=== PATIENT | female | born 1960 | race Caucasian/White ===

== ENCOUNTER 2020-08-11 04:20 | Emergency (ER) | payer OTHER ==
[~2020-08-11] VITALS: Ht 172.7 cm; Wt 122.7 kg
[2020-08-11] MEDS ORDERED: IV RINGERS SOLUTION,LACTATED 1,000 ML IV SCH (04:38)
--- NOTE | 2020-08-11 04:38 | PHYS DOC ---
Past History Past Medical History: Constipation (BIB MACKENZIE MD) General Adult HPI: HPI: ".. I ve had this pain. .. here in my Rt. flank .. it been coming on the past couple days.. but it got really severe.. this morning.. About 4 weeks ago .. I had pneumonia.. and COVID.. I gely got over it.. but now this pain.. in my side..." Patient is a 59 year old female who presents with above hx and onset of severe Rt. flank pain. Patient denies any trauma. Patient denies any history of past kidney stones. No history of immunosuppression. No recent travel outside the [place] area. No specific ill contacts. Pt. Follows with Dr. Zapien. (BIB MACKENZIE MD) Review of Systems: Review of Systems: Constitutional: Denies fever or chills Eyes: Denies change in visual acuity HENT: Denies nasal congestion or sore throat Respiratory: Denies cough or shortness of breath Cardiovascular: Denies chest pain or edema GI: Complains of right flank abdominal pain, nausea. Denies, vomiting, bloody stools or diarrhea some history of constipation : Denies dysuria Musculoskeletal: Complains of right flank back pain Integument: Denies rash Neurologic: Denies headache, focal weakness or sensory changes Endocrine: Denies polyuria or polydipsia Lymphatic: Denies swollen glands Psychiatric: Denies depression or anxiety (BIB MACKENZIE MD) Family History: Family History: Noncontributory to presentation (BIB MACKENZIE MD) Current Medications: Current Meds: See nursing for home meds (BIB MACKENZIE MD) Allergies: Allergies: As per nursing (BIB MACKENZIE MD) Physical Exam: PE: Constitutional: in acute distress, non-toxic appearance. [] HENT: Normocephalic, atraumatic, bilateral external ears normal, oropharynx moist, no oral exudates, nose normal. [] Eyes: PERRLA, EOMI, conjunctiva normal, no discharge. [] Neck: Normal range of motion, no tenderness, supple, no stridor. [] Cardiovascular:Heart rate regular rhythm, no murmur [] Lungs & Thorax: Bilateral breath sounds equal apex auscultation [] Abdomen: Bowel sounds decreased, soft, right flank and lower quadrant tenderness, no masses, no pulsatile masses. [Distended Skin: Warm, diaphoretic, no erythema, no rash. [] Back: No tenderness, right flank CVA tenderness. [] Extremities: No tenderness, no cyanosis, no clubbing, ROM intact, no edema. No psoas sign. No cording Neurologic: Alert and oriented X 3, normal motor function, normal sensory function, no focal deficits noted. [] Psychologic: Affect anxious, judgement normal, mood normal. [] (BIB MACKENZIE MD) Current Patient Data: Labs: Laboratory Tests Test 08/11/20 04:25 08/11/20 04:50 Urine Collection Type Void Urine Color Yellow Urine Clarity Clear Urine pH 5.0 Urine Specific [place] >=1.030 Urine Protein Trace (NEG-TRACE) Urine Glucose (UA) >=1000 mg/dL (NEG) Urine Ketones (Stick) Neg mg/dL (NEG) Urine Blood Neg (NEG) Urine Nitrite Neg (NEG) Urine Bilirubin Neg (NEG) Urine Urobilinogen Dipstick 0.2 mg/dL (0.2 mg/dL) Urine Leukocyte Esterase Neg (NEG) Urine RBC 0 /HPF (0-2) Urine WBC 20-40 /HPF (0-4) Urine Squamous Epithelial Cells Mod /LPF Urine Bacteria Few /HPF (0-FEW) Urine Opiates Screen Neg (NEG) Urine Methadone Screen Neg (NEG) Urine Barbiturates Neg (NEG) Urine Phencyclidine Screen Neg (NEG) Urine Amphetamine/Methamphetamine Neg (NEG) Urine Benzodiazepines Screen Neg (NEG) Urine Cocaine Screen Neg (NEG) Urine Cannabinoids Screen Pos (NEG) Urine Ethyl Alcohol Neg (NEG) White Blood Count 10.9 x10^3/uL (4.0-11.0) Red Blood Count 4.43 x10^6/uL (3.50-5.40) Hemoglobin 13.0 g/dL (12.0-15.5) Hematocrit 40.9 % (36.0-47.0) Mean Corpuscular Volume 92 fL (79-100) Mean Corpuscular Hemoglobin 29 pg (25-35) Mean Corpuscular Hemoglobin Concent 32 g/dL (31-37) Red Cell Distribution Width 16.0 % (11.5-14.5) Platelet Count 244 x10^3/uL (140-400) Segmented Neutrophils % 41 % (35-66) Lymphocytes % 52 % (24-48) Monocytes % 4 % (0-10) Eosinophils % 3 % (0-5) Platelet Estimate Adequate (ADEQUATE) Prothrombin Time 9.6 SEC (9.4-11.4) Prothromb Time International Ratio 0.9 (0.9-1.1) Activated Partial Thromboplast Time 24 SEC (23-33) Sodium Level 139 mmol/L (136-145) Potassium Level 3.8 mmol/L (3.5-5.1) Chloride Level 103 mmol/L (98-107) Carbon Dioxide Level 25 mmol/L (21-32) Anion Gap 11 (6-14) Blood Urea Nitrogen 21 mg/dL (7-20) Creatinine 1.0 mg/dL (0.6-1.0) Estimated GFR (Cockcroft-Gault) 56.9 Glucose Level 130 mg/dL (70-99) Calcium Level 8.7 mg/dL (8.5-10.1) Total Bilirubin 0.3 mg/dL (0.2-1.0) Direct Bilirubin 0.1 mg/dL (0.0-0.2) Aspartate Amino Transf (AST/SGOT) 12 U/L (15-37) Alanine Aminotransferase (ALT/SGPT) 31 U/L (14-59) Alkaline Phosphatase 54 U/L (46-116) Creatine Kinase 52 U/L (26-192) Troponin I Quantitative < 0.017 ng/mL (0-0.055) Total Protein 7.9 g/dL (6.4-8.2) Albumin 3.8 g/dL (3.4-5.0) Lipase 115 U/L (73-393) Vital Signs: Vital Signs Date Time Temp Pulse Resp B/P (MAP) Pulse Ox O2 Delivery O2 Flow Rate FiO2 08/11/20 04:25 98.5 86 24 158/96 (116) 97 Room Air (RADHA MCKEE DO) EKG: EKG: My interpretation EKG shows a sinus rhythm at 73 bpm. Left carcamo axis. Nonspecific contour changes. No findings of acute STEMI of contralateral changes. There are some findings anterior septal changes. [] (BIB MACKENZIE MD) Radiology/Procedures: Radiology/Procedures: [] (BIB MACKENZIE MD) Radiology/Procedures: PROCEDURE: CT ABDOMEN PELVIS WO CONTRAST Study: CT abdomen/pelvis without intravenous contrast Indication: Severe right flank pain. Comparison: No prior CT. Technique: Helical CT imaging performed of the abdomen and pelvis without the use of intravenous contrast. Sagittal and coronal reformats were obtained. One or more of the following individualized dose reduction techniques were utilized for this examination: 1. Automated exposure control 2. Adjustment of the mA and/or kV according to patient size 3. Use of iterative reconstruction technique. Findings: Inherently limited evaluation without intravenous contrast. Chest: No acute abnormality. Liver: Hepatic steatosis. Gallbladder/Biliary Tree: Within normal limits. Pancreas: Partial fatty atrophy. Spleen: Normal in size. Adrenal Glands: Normal. Kidneys/Ureters/Bladder: Simple left renal cyst measuring up to 3 cm. Probable smaller cysts at the left kidney lower pole. No intrarenal stone. No hydroureteronephrosis. Mostly decompressed urinary bladder. Reproductive Organs: Unremarkable. Colon: Mild/moderate constipation. The cecum extends upward into the right lower quadrant. No localized clonic wall thickening or pericolonic inflammation. Appendix: Normal. Small Bowel: No pathologic dilatation with transitioning to collapse to suggest obstruction. Stomach: Unremarkable. Vasculature: Mild calcific atherosclerosis. Nonaneurysmal aorta. Lymph Nodes: No suspicious lymph nodes based on size. Borderline prominent nuvia hepatis lymph node measuring 1 cm short axis but most likely reactive given hepatic steatosis. Peritoneum and Body Wall: Mild haziness of the mesentery at the left upper quadrant but without intermixed lymphadenopathy to suggest an aggressive process. No free fluid or pneumoperitoneum. No complex hernia. Bones: Multifocal degenerative/chronic findings. Osseous proliferation at scattered locations which can be seen with diffuse idiopathic skeletal hyperostosis. No acute or aggressive osseous abnormality. Miscellaneous: None. Impression: 1. No nephrolithiasis or collecting system obstruction is identified in the setting of reported right flank pain. Collectively no acute abnormality is seen throughout the abdomen or pelvis. 2. Mild/moderate constipation. 3. Hepatic steatosis. 4. Additional chronic observations detailed in the body the report. Electronically signed by: SAMARA OSEI MD (08/11/2020 5:58 AM) [id number] (RADHA MCKEE DO) Heart Score: Risk Factors: Risk Factors: DM, Current or recent (<one month) smoker, HTN, HLP, family history of CAD, obesity. Risk Scores: Score 0 - 3: 2.5% MACE over next 6 weeks - Discharge Home Score 4 - 6: 20.3% MACE over next 6 weeks - Admit for Clinical Observation Score 7 - 10: 72.7% MACE over next 6 weeks - Early Invasive Strategies (BIB MACKENZIE MD) Course & Med Decision Making: Course & Med Decision Making Pertinent Labs and Imaging studies reviewed. (See chart for details) Endorsed to Dr. Mckee at shift change. CT pending. [] (BIB MACKENZIE MD) Course & Med Decision Making Comprehensive signout received from off going physician. I thoroughly reviewed patient's chart and ER work-up thus far. By the time I evaluated patient, patient's comprehensive ER work-up had been completed. Patient hemodynamically stable, no obvious surgical and/or emergent findings apparent from the work-up Patient seen and examined by myself, I repeated certain aspects of history and physical exam. Again, nothing urgent and/or concerning at this time requiring further ER work-up and/or hospital admission Discussed most likely diagnoses of constipation versus musculoskeletal right flank/lower back pain. Based on comprehensive work-up, low risk for nephrolithiasis, atypical ACS, surgical abdomen etc. I did disclose this might be an acute presentation more concerning pathology and thus, close outpatient follow-up advised. She sees Dr. Fontaine, local primary care physician in area and will be able to be seen within upcoming 5 days. I feel this is appropriate Strict return precautions were discussed with good understanding by patient, all questions and concerns addressed prior to ER departure home with supportive care instructions advised for patient's constipation and lower back pain (RADHA MCKEE DO) Amara Disclaimer: Amara Disclaimer: This electronic medical record was generated, in whole or in part, using a voice recognition dictation system. (BIB MACKENZIE MD) Departure Departure: Impression: Primary Impression: Flank pain Additional Impression: Constipation Disposition: 01 DC HOME SELF CARE/HOMELESS Patient Instructions: Back Exercises, Constipation, Adult, Flank Pain Additional Instructions: You have been evaluated in the Emergency Department today for lower back/flank pain. Your evaluation was not suggestive of any emergent condition requiring medical intervention at this time. However, some problems make take more time to appear. Therefore, it is important for you to watch for any new symptoms or worsening of your current condition. As discussed, please call your primary care physician immediately after ER departure to schedule outpatient follow-up by the end of the week for repeat evaluation Also, please take MiraLAX daily and increase p.o. water intake to improve your constipation. Utilize heating pad to right flank area and topical Voltaren gel as needed Return to the Emergency Department if you experience worsening pain, persistent fevers greater than 100.4, recurrent vomiting, blood in vomit, blood in stool, dark tarry stool, chest pain, difficulty breathing, or any other concerning symptoms. BIB MACKENZIE MD Aug 11, 2020 04:38 RADHA MCKEE DO Aug 11, 2020 06:22
[2020-08-11] MEDS ORDERED: MORPHINE SULFATE 10 MG/ML SYRINGE. ONE (04:41)
[2020-08-11] MEDS ORDERED: ONDANSETRON PF 4 MG/2 ML VIAL. ONE (04:41)
[2020-08-11] MEDS ORDERED: MORPHINE SULFATE 10 MG/ML SYRINGE. SQ ONE (04:45)
[2020-08-11] MEDS ORDERED: ONDANSETRON PF 4 MG/2 ML VIAL. IVP ONE ×2 (04:45)
[2020-08-11 05:17] LABS: HEMATOCRIT 40.9 % (36.0-47.0); MEAN CORPUSCULAR HEMOGLOBIN 29 pg (25-35); MEAN CORPUSCULAR HGB CONC 32 g/dL (31-37); MEAN CORPUSCULAR VOLUME 92 fL (79-100); RED BLOOD COUNT 4.43 x10^6/uL (3.50-5.40); WHITE BLOOD COUNT 10.9 x10^3/uL (4.0-11.0)
[2020-08-11 05:18] LABS: PLATELET COUNT 244 x10^3/uL (140-400)
[2020-08-11 05:22] LABS: BARBITURATES NEG (NEG); BENZODIAZEPINES NEG (NEG); CANNABINOIDS POS (NEG); COCAINE NEG (NEG); METHADONE NEG (NEG); OPIATES NEG (NEG); PHENCYCLIDINE NEG (NEG)
[2020-08-11 05:23] LABS: AMPHETAMINE/METHAMPHETAMINE NEG (NEG)
[2020-08-11 05:26] LABS: CALCIUM 8.7 mg/dL (8.5-10.1); GFR 56.9; POTASSIUM 3.8 mmol/L (3.5-5.1)
[2020-08-11 05:27] LABS: BACTERIA,URINE FEW /HPF (0-FEW); BILIRUBIN,URINE NEG (NEG); CLARITY,URINE CLEAR; COLOR,URINE YELLOW; GLUCOSE,URINE >=1000 mg/dL (NEG); NITRITE,URINE NEG (NEG); RBC,URINE 0 /HPF (0-2); SQUAMOUS EPITHELIAL CELL,UR MOD /LPF; UROBILINOGEN,URINE 0.2 mg/dL (0.2 mg/dL); WBC,URINE 20-40 /HPF (0-4)
[2020-08-11] MEDS ORDERED: FAMOTIDINE 20 MG/2 ML VIAL IVP ONE (05:30)
[2020-08-11 05:32] LABS: ALBUMIN 3.8 g/dL (3.4-5.0); DIRECT BILIRUBIN 0.1 mg/dL (0.0-0.2); TOTAL BILIRUBIN 0.3 mg/dL (0.2-1.0); TOTAL PROTEIN 7.9 g/dL (6.4-8.2)
[2020-08-11 05:39] LABS: % EOS 3 % (0-5); % LYMPHS 52 % (24-48); % MONOS 4 % (0-10); % SEGS 41 % (35-66); PLT ESTIMATE ADEQUATE (ADEQUATE)
--- NOTE | 2020-08-11 05:47 | EKG ---
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
--- NOTE | 2020-08-11 06:01 | RAD ---
Study: CT abdomen/pelvis without intravenous contrast Indication: Severe right flank pain. Comparison: No prior CT. Technique: Helical CT imaging performed of the abdomen and pelvis without the use of intravenous contrast. Sagittal and coronal reformats were obtained. One or more of the following individualized dose reduction techniques were utilized for this examination: 1. Automated exposure control 2. Adjustment of the mA and/or kV according to patient size 3. Use of iterative reconstruction technique. Findings: Inherently limited evaluation without intravenous contrast. Chest: No acute abnormality. Liver: Hepatic steatosis. Gallbladder/Biliary Tree: Within normal limits. Pancreas: Partial fatty atrophy. Spleen: Normal in size. Adrenal Glands: Normal. Kidneys/Ureters/Bladder: Simple left renal cyst measuring up to 3 cm. Probable smaller cysts at the left kidney lower pole. No intrarenal stone. No hydroureteronephrosis. Mostly decompressed urinary bladder. Reproductive Organs: Unremarkable. Colon: Mild/moderate constipation. The cecum extends upward into the right lower quadrant. No localized clonic wall thickening or pericolonic inflammation. Appendix: Normal. Small Bowel: No pathologic dilatation with transitioning to collapse to suggest obstruction. Stomach: Unremarkable. Vasculature: Mild calcific atherosclerosis. Nonaneurysmal aorta. Lymph Nodes: No suspicious lymph nodes based on size. Borderline prominent nuvia hepatis lymph node measuring 1 cm short axis but most likely reactive given hepatic steatosis. Peritoneum and Body Wall: Mild haziness of the mesentery at the left upper quadrant but without intermixed lymphadenopathy to suggest an aggressive process. No free fluid or pneumoperitoneum. No complex hernia. Bones: Multifocal degenerative/chronic findings. Osseous proliferation at scattered locations which can be seen with diffuse idiopathic skeletal hyperostosis. No acute or aggressive osseous abnormality. Miscellaneous: None. Impression: 1. No nephrolithiasis or collecting system obstruction is identified in the setting of reported right flank pain. Collectively no acute abnormality is seen throughout the abdomen or pelvis. 2. Mild/moderate constipation. 3. Hepatic steatosis. 4. Additional chronic observations detailed in the body the report. Electronically signed by: SAMARA OSEI MD (08/11/2020 5:58 AM) [id number]
--- NOTE | 2020-08-11 06:02 | RAD ---
Study: CR ACUTE ABDOMEN SERIES Indication: Lower abdominal/right flank pain. Comparison: Same day CT abdomen/pelvis. Findings: No suspicious calcification seen at the right upper quadrant or along the expected course of the right ureter. Pelvic phleboliths. Mild/moderate constipation. The bowel gas pattern is nonobstructive. Within normal limits cardiomediastinal silhouette and geoff. Mild basilar volume loss. No confluent infiltrate, layering effusion or pneumothorax. Impression: 1. No acute radiographic abnormality of the chest or abdomen. 2. Mild/moderate constipation. Electronically signed by: SAMARA OSEI MD (08/11/2020 5:59 AM) [id number]
[2020-08-11 06:30] VITALS: BP 135/77
== END 2020-08-11 06:30 | disposition home or self-care (01) ==
LOC: ER 04:20
DX: K59.00 Constipation, unspecified (principal)
CPT/HCPCS: 36415; 74022; 74176; 80048; 80076; 80307; 81001; 82550; 83690; 84484; 85007; 85025; 85610; 85730; 87086; 93005; 96361; 96372; 96374; 96375; 99285; J2270; J2405; J3490; J7120